=== PATIENT | male | born 1995 | race Caucasian/White ===

== ENCOUNTER 2016-11-07 04:27 | Emergency (ER) | payer BC ==
[~2016-11-07] VITALS: Ht 172.7 cm; Wt 72.1 kg
[~2016-11-07 04:27] MED LIST: AMOX875T PO
[2016-11-07 04:32] VITALS: BP 130/82; PULSE 88; TEMP 37; O2SAT 97; Ht 172.7 cm; Wt 72.1 kg
[2016-11-07] MEDS ORDERED: XYLOCAINE 1%/SOD BICARB 20 ML VIAL INFIL ONE (05:00)
--- NOTE | 2016-11-08 01:07 | EMERGENCY ROOM VISIT NOTE ---
ED Visit Note First contact with patient: 04:37 CHIEF COMPLAINT: Forehead laceration HISTORY OF PRESENT ILLNESS: This 21-year-old male patient presents to the emergency department after cutting the forehead just prior to arrival. The patient was in his bed, reached over to turn off his light, when he slipped, and struck his head off the nightstand. He did not lose consciousness. The bleeding has stopped. Denies weakness or numbness of the face. The patient rates the pain as dull and 2/10. The patient denies any other injuries. The patient's Tetanus shot is reportedly up to date. REVIEW OF SYSTEMS: A 6 system review of systems was completed with positives and pertinent negatives listed in the HPI. ALLERGIES: No known allergies MEDICATIONS: No chronic medications PMH: Otherwise healthy SOCIAL HISTORY: Student and lives locally PHYSICAL EXAM: Vital Signs: Reviewed Nurse's notes, vital signs stable. GENERAL : White male, in no acute distress, well-developed, well-nourished. SKIN: There is a Y-shaped 3.0 cm long laceration on the central aspect of the forehead. The edges gape apart with traction. There is no foreign material in the wound and it looks clean. There is no significant bleeding. No deep structures such as tendons, bones, or significant blood vessels are seen in the base of the wound. Normal strength and movement of the face. Capillary refill less than 2 seconds. Normal sensation to light and sharp touch. EMERGENCY DEPARTMENT COURSE: I examined the patient. Verbal consent was obtained to perform the procedure. Using sterile technique the wound was cleansed with Betadine. The area was sterilely draped. 4 ml of 1% buffered lidocaine was used to anesthetize the laceration on the laceration. Once the patient was anesthetized, the wound was copiously irrigated under pressure with sterile saline. The wound was explored and was as described above. The laceration was repaired using 4 simple interrupted 6-0 nylon sutures with the wound edges being well approximated. The patient tolerated the procedure well. Hemostasis was achieved. The area was cleaned with sterile saline and dressed with bacitracin ointment and bandage. The patient was discharged home in good condition. Current/Historical Medications No Active Prescriptions or Reported Meds Allergies Coded Allergies: No Known Allergies (Unverified , 11/07/16) Vital Signs Date Time Temp Pulse Resp B/P Pulse Ox O2 Delivery O2 Flow Rate FiO2 11/07/16 04:32 37.0 88 18 130/82 97 Room Air Departure Information Impression Primary Impression: Laceration of forehead Dispostion Home / Self-Care Condition GOOD Prescriptions No Active Prescriptions or Reported Meds Forms HOME CARE DOCUMENTATION FORM, IMPORTANT VISIT INFORMATION Patient Instructions [facility], ED Laceration All, ED Scar Tips to Minimize Additional Instructions Keep wound clean and dry. Do not allow any crusting or dried blood to accumulate on sutures. If this occurs, use a mild soap/water on a Q-tip to clean the wound. Do not use Peroxide to clean the wound as this can delay healing Use an antibiotic ointment like Bacitracin for 3-4 days, then let wound dry. You may bathe and shower as normal, but DO NOT SOAK the wound. Suture removal in about 5-7 days with your Family Doctor or in the ER. Return sooner for any signs of infection, increasing redness, swelling, or drainage.
== END 2016-11-07 06:19 | disposition home or self-care (01) ==
LOC: C.EDB 04:28
DX: S01.81XA Laceration without foreign body of other part of head, initial encounter (principal); W22.09XA Striking against other stationary object, initial encounter

== ENCOUNTER 2016-11-12 16:51 | Emergency (ER) | payer BC ==
[~2016-11-12] VITALS: Ht 170.2 cm; Wt 73.3 kg
[2016-11-12 17:05] VITALS: TEMP 36.4; Ht 170.2 cm; Wt 73.3 kg
[2016-11-12 18:11] VITALS: BP 108/59; PULSE 64; O2SAT 97
--- NOTE | 2016-11-19 00:34 | EMERGENCY ROOM VISIT NOTE ---
ED Visit Note First contact with patient: 17:21 CHIEF COMPLAINT: Suture removal. HISTORY OF PRESENT ILLNESS: Mr. Cassidy is a 21-year-old male who ambulates into the ED requesting suture removal for a laceration he sustained a 5 days ago. He reports since being discharged he feels the wound is healing well and he has seen no signs of infection and has had no signs of head injury. PHYSICAL EXAM: Vital Signs: Date Time Temp Pulse Resp B/P Pulse Ox O2 Delivery O2 Flow Rate FiO2 11/12/16 18:11 64 14 97 11/12/16 17:05 36.4 58 16 127/76 99 Room Air GENERAL: 21-year-old male in no acute distress, nontoxic appearing and hemodynamically stable. NEUROLOGICAL: Awake, alert and oriented 3. Answering questions appropriately and following commands. FACE: Over the forehead area there is a laceration that appears well healing without signs of infection (erythema, swelling, tenderness, purulent drainage). ED COURSE: Patient is assessed as noted above. 4 sutures were removed without any difficulty and there was no separation of the wound edges. DISPOSITION: Patient discharged home in stable condition. CLINICAL IMPRESSION: Suture removal; Well healing laceration. PLAN: Patient was encouraged to continue his current instructions for cleaning and signs of infection. Patient was encouraged return to the ED for any signs of infection or any new/ concerning symptoms.
== END 2016-11-12 18:16 | disposition home or self-care (01) ==
LOC: C.EDB 16:51 → C.EDD 18:16
DX: Z48.02 Encounter for removal of sutures (principal); S01.81XD Laceration without foreign body of other part of head, subsequent encounter; X58.XXXD Exposure to other specified factors, subsequent encounter